=== PATIENT | male | born 1945 | race Caucasian/White ===

== ENCOUNTER → 2018-12-27 | Outpatient (REF) | payer MEDICARE, OTHER ==
[~2018-12-27] MED LIST: COUMADIN10 MG OR; COUMADIN7.5 MG OR; ENDUR-ACIN500 MG OR; SIMVASTATIN40 MG OR; SOTALOL AF120 MG OR; ZESTRIL5 MG OR
== END | disposition home or self-care (01) ==
LOC: LAB 09:37
PROVIDERS: ATTEND Radiology Radiation Oncology
DX: C61 Malignant neoplasm of prostate (principal)